=== PATIENT | female | born 1965 | race Caucasian/White ===

== ENCOUNTER 2017-04-24 17:34 | Emergency (ER) | payer BC ==
[2017-04-24 17:39] VITALS: BP 101/62
--- NOTE | 2017-04-24 17:44 | UC ---
Complaint Female HPI - HPI Summary HPI Summary: 51 YEAR OLD FEMALE PRESENTS WITH BURNING AND FREQUENCY OF URINATION. - History Of Current Complaint Chief Complaint: [facility] Stated Complaint: BLADDER/URINARY COMPLAINT Time Seen by Provider: 04/24/17 17:43 Hx Last Menstrual Period: 10 DAYS AGO - Allergies/Home Medications Allergies/Adverse Reactions: Allergies Allergy/AdvReac Type Severity Reaction Status Date / Time Sulfa Antibiotics Allergy Unknown Unknown Verified 04/24/17 17:39 Reaction Details Home Medications: Home Medications Supplements* 04/24/17 [History] PMH/Surg Hx/FS Hx/Imm Hx Previously Healthy: Yes - Surgical History Surgical History: None - Social History Alcohol Use: Weekly Alcohol Amount: 3-4/WEEK Substance Use Type: None Smoking Status (MU): Never Smoked Tobacco Review of Systems Constitutional: Negative Skin: Negative Eyes: Negative ENT: Negative Respiratory: Negative Cardiovascular: Negative Gastrointestinal: Negative Genitourinary: Dysuria, Frequency, Urgency Motor: Negative Neurovascular: Negative Musculoskeletal: Negative Neurological: Negative Psychological: Negative All Other Systems Reviewed And Are Negative: Yes Physical Exam Triage Information Reviewed: Yes Vital Signs: Initial Vital Signs Temp 36.7 C 04/24/17 17:36 Pulse 59 04/24/17 17:36 Resp 16 04/24/17 17:36 BP 101/62 04/24/17 17:36 Eye Exam: Normal ENT Exam: Normal Dental Exam: Normal Neck exam: Normal Neck: Positive: 1 Respiratory Exam: Normal Cardiovascular Exam: Normal Abdominal Exam: Normal Musculoskeletal Exam: Normal Neurological Exam: Normal Psychological Exam: Normal Skin Exam: Normal Complaint Female Dx - Differential Dx/Diagnosis Provider Diagnoses: URINARY FREQUENCY. URINARY URGENCY Discharge - Discharge Plan Condition: Stable Disposition: HOME Prescriptions: Nitrofurantoin Monohyd Macro [Macrobid] 100 mg PO BID #[id number] Patient Education Materials: Urinary Tract Infection in Women (ED) Referrals: Aida Torres MD [Primary Care Provider] - If Needed
== END 2017-04-24 18:04 | disposition home or self-care (01) ==
LOC: UCEAST 17:34
DX: R35.0 Frequency of micturition (principal); R39.15 Urgency of urination
CPT/HCPCS: 81003; 87086; 99212; G0463